=== PATIENT | male | born 1940 | race Caucasian/White ===

== ENCOUNTER 2018-04-10 13:55 | Outpatient (CLI) | payer OTHER ==
[~2018-04-10 13:55] MED LIST: AMIO200T42 PO; DIGO125T PO; DILT30TA33 PO; DOXA1TAB2 PO; FURO40TA6 PO; POTA20TA6 PO; RIVA10TA2 PO; TRAM50TA2 PO
[2018-05-09] MEDS ORDERED: METO50TA4 PO (14:47)
[2018-05-09] MEDS ORDERED: FURO40TA6 PO (14:47)
[2018-05-09] MEDS ORDERED: DIGO125T PO (14:47)
[2018-05-09] MEDS ORDERED: AMLO-150 PO (14:47)
[2018-05-09] MEDS ORDERED: potassium chloride PO (14:47)
[2018-05-09] MEDS ORDERED: AMIO100T4 PO (14:47)
== END 2018-04-10 23:59 | disposition home or self-care (01) ==
LOC: CFH 13:55
PROVIDERS: ATTEND Internal Medicine Cardiovascular Disease
DX: Z02.9 Encounter for administrative examinations, unspecified (principal)

== ENCOUNTER → 2018-05-07 | Outpatient (CLI) | payer OTHER ==
[~2018-05-07] MED LIST changes: +AMIO100T4 PO; +AMLO-150 PO; +METO50TA4 PO; +potassium chloride PO
== END | disposition home or self-care (01) ==
LOC: CVU 11:38
PROVIDERS: ATTEND Internal Medicine Cardiovascular Disease
DX: I08.1 Rheumatic disorders of both mitral and tricuspid valves (principal); I48.91 Unspecified atrial fibrillation
CPT/HCPCS: 0399T; 93306

== ENCOUNTER 2018-05-10 08:00 | Day surgery (SDC) | payer OTHER ==
[2018-05-09 15:11] LABS: BASOPHILS # (AUTO) 0.02 x10^3/uL (0-0.1); BASOPHILS % (AUTO) 0 % (0-1); EOSINOPHILS # (AUTO) 0.09 x10^3/uL (0-0.4); EOSINOPHILS % (AUTO) 2 % (1-7); LYMPHOCYTES # (AUTO) 0.84 x10^3/uL (1-3.4); LYMPHOCYTES % (AUTO) 18 % (22-44); MD NO; MEAN CORPUSCULAR HEMOGLOBIN 32.4 pg (27.5-34.5); MEAN CORPUSCULAR VOLUME 95.3 fL (81-97); MONOCYTES # (AUTO) 0.32 x10^3/uL (0.2-0.8); MONOCYTES % (AUTO) 7 % (2-9); NEUTROPHILS # (AUTO) 3.46 x10^3/uL (1.8-6.8); NEUTROPHILS % (AUTO) 73 % (42-75); PLATELET COUNT 105 x10^3/uL (130-400); RED BLOOD COUNT 3.65 x10^6/uL (4.38-5.82); RED CELL DISTRIBUTION WIDTH 15.3 % (9.4-14.8)
[2018-05-09 15:16] LABS: ALANINE AMINOTRANSFERASE 22 U/L (12-78); ALBUMIN 3.7 g/dL (3.4-5.0); ANION GAP 6 mmol/L (5-15); CALCIUM 8.1 mg/dL (8.5-10.1); CHLORIDE 110 mmol/L (98-107); CREATININE 1.48 mg/dL (0.7-1.3)
[2018-05-09 15:18] LABS: ALKALINE PHOSPHATASE 44 U/L (45-117); BILIRUBIN,TOTAL 0.9 mg/dL (0.2-1.0); TOTAL PROTEIN 6.2 g/dL (6.4-8.2)
[~2018-05-10] VITALS: Ht 188 cm; Wt 77.2 kg
[2018-05-10] MEDS ORDERED: MIDAZOLAM 1 MG/ML, 2ML ONE (08:41)
[2018-05-10] MEDS ORDERED: HEPARIN 1,000 UNITS/ML, 10ML ONE (08:42)
[2018-05-10] MEDS ORDERED: VERAPAMIL 2.5 MG/ML, 2ML ONE (08:42)
[2018-05-10] MEDS ORDERED: LIDOCAINE-MPF 1%, 5ML ONE (08:42)
[2018-05-10] MEDS ORDERED: FENTANYL PF 100 MCG/2ML ONE (08:42)
[2018-05-10] MEDS ORDERED: NITROGLYCERIN 5 MG/ML, 10ML ONE (08:42)
[2018-05-10] MEDS ORDERED: SODIUM CHLORIDE 0.9% 1,000 ML IV SCH ×2 (09:49→10:00)
== END 2018-05-10 12:10 | disposition home or self-care (01) ==
LOC: CACL 08:00
PROVIDERS: ATTEND Internal Medicine Cardiovascular Disease
DX: I25.10 Atherosclerotic heart disease of native coronary artery without angina pectoris (principal); I48.91 Unspecified atrial fibrillation; I10 Essential (primary) hypertension; I34.0 Nonrheumatic mitral (valve) insufficiency
CPT/HCPCS: 36415; 80053; 85025; 93460; 99156; C1769; C1894; J1644; J2250; J3010; Q9967

== ENCOUNTER 2018-07-03 11:30 | Inpatient (IN) | payer OTHER ==
[~2018-07-03] VITALS: Ht 188 cm; Wt 89.1 kg
[2018-07-03 14:22] LABS: MICROSCOPIC NOT IND
[2018-07-03 14:42] LABS: BASOPHILS # (AUTO) 0.04 x10^3/uL (0-0.1); BASOPHILS % (AUTO) 1 % (0-1); EOSINOPHILS # (AUTO) 0.07 x10^3/uL (0-0.4); EOSINOPHILS % (AUTO) 2 % (1-7); LYMPHOCYTES # (AUTO) 0.79 x10^3/uL (1-3.4); LYMPHOCYTES % (AUTO) 19 % (22-44); MD NO; MEAN CORPUSCULAR HEMOGLOBIN 31.1 pg (27.5-34.5); MEAN CORPUSCULAR HGB CONC 33.3 g/dL (33.2-36.2); MEAN CORPUSCULAR VOLUME 93.4 fL (81-97); MEAN PLATELET VOLUME 9.4 fL (7.4-10.4); MONOCYTES # (AUTO) 0.29 x10^3/uL (0.2-0.8); MONOCYTES % (AUTO) 7 % (2-9); NEUTROPHILS # (AUTO) 3.03 x10^3/uL (1.8-6.8); NEUTROPHILS % (AUTO) 72 % (42-75); PLATELET COUNT 135 x10^3/uL (130-400); RED CELL DISTRIBUTION WIDTH 16.5 % (9.4-14.8)
[2018-07-03 14:47] LABS: INTERNATIONAL NORMALIZED RATIO 1.02 (0.93-1.1); PROTHROMBIN TIME 10.7 Seconds (9.6-11.5)
[2018-07-03 14:51] LABS: ALANINE AMINOTRANSFERASE 20 U/L (12-78); ALBUMIN 3.9 g/dL (3.4-5.0); ANION GAP 4 mmol/L (5-15); CALCIUM 8.5 mg/dL (8.5-10.1); CHLORIDE 112 mmol/L (98-107); CREATININE 1.47 mg/dL (0.7-1.3)
[2018-07-03 14:54] LABS: ALKALINE PHOSPHATASE 41 U/L (45-117); BILIRUBIN,TOTAL 0.4 mg/dL (0.2-1.0); TOTAL PROTEIN 6.4 g/dL (6.4-8.2)
[2018-07-03 15:24] LABS: HEMOGLOBIN A1C 5.2 % (4.2-6.3)
[2018-07-04] VITALS (18 sets, daily range): BP systolic 84–152; BP diastolic 41–77
[2018-07-04] MEDS ORDERED: PLEASE ENTER WEIGHT MC SCH (05:00)
[2018-07-04] MEDS ORDERED: INSULIN LISPRO 100 UNITS/ML, PEN SQ-INSULIN SCH (06:00)
[2018-07-04] MEDS ORDERED: DO NOT GIVE MC SCH (06:00)
[2018-07-04] MEDS ORDERED: CHLORHEXIDINE 15 ML UDC MM SCH (06:00)
[2018-07-04] MEDS: SODIUM CHLORIDE FLUSH 10ML SYR IVF SCH ×3 (06:32→19:53)
[2018-07-04] MEDS ORDERED: FENTANYL PF 250 MCG/5ML ONE ×4 (06:42→06:43)
[2018-07-04] MEDS ORDERED: MIDAZOLAM 10MG/2 ML ONE (06:42)
[2018-07-04] MEDS ORDERED: VASOPRESSIN 20 UNIT/ML, 1ML ONE (07:08)
[2018-07-04] MEDS ORDERED: REGULAR INSULIN 62.5 UNITS in SODIUM CHLORIDE 0.9% 249.375 ML IV PRN ×2 (07:30→10:36)
[2018-07-04] MEDS ORDERED: CEFUROXIME 1.5 GM in SODIUM CHLORIDE 0.9% 50 ML IVPB PRN (07:30)
[2018-07-04] MEDS ORDERED: MANNITOL PMX 20% 500 ML IVPB PRN (07:30)
[2018-07-04] MEDS ORDERED: VANCOMYCIN 1,100 MG in SODIUM CHLORIDE 0.9% 250 ML IV PRN (07:30)
[2018-07-04] MEDS ORDERED: POTASSIUM CHLORIDE 80 MEQ, SODIUM BICARBONATE 8.4% 10 MEQ, MAGNESIUM SULFATE 0.5 GM, LI... IV PRN (07:30)
[2018-07-04] MEDS ORDERED: EPINEPHRINE 2 MG in SODIUM CHLORIDE 0.9% 248 ML IV SCH (07:30)
[2018-07-04] MEDS ORDERED: PHENYLEPHRINE 10 MG in SODIUM CHLORIDE 0.9% 249 ML IV PRN (07:30)
[2018-07-04] MEDS ORDERED: VANCOMYCIN 1,200 MG in SODIUM CHLORIDE 0.9% 250 ML IV PRN (07:30)
[2018-07-04] MEDS ORDERED: ALBUMIN HUMAN 5% 500 ML IV PRN (07:30)
[2018-07-04] MEDS ORDERED: DEXMEDETOMIDINE 200 MCG in SODIUM CHLORIDE 0.9% 48 ML IV SCH (07:30)
[2018-07-04] MEDS ORDERED: CALCIUM CHLORIDE 10%, 10ML SYR ONE (08:37)
[2018-07-04] MEDS ORDERED: PHENYLEPHRINE 10 MG/ML ONE (08:39)
[2018-07-04] MEDS ORDERED: PROPOFOL 10 MG/ML, 20ML ONE (08:39)
[2018-07-04] MEDS ORDERED: AMINOCAPROIC ACID 250 MG/ML, 20ML ONE ×2 (08:39)
[2018-07-04] MEDS ORDERED: ROCURONIUM 10MG/ML,5ML ONE ×2 (08:39)
[2018-07-04] MEDS ORDERED: PROTAMINE SULFATE 10 MG/ML, 25ML ONE ×2 (08:39)
[2018-07-04] MEDS ORDERED: EPINEPHRINE 1 MG/ML, 1ML ONE (08:39)
[2018-07-04] MEDS ORDERED: MUPIROCIN OINT 2%, 22GM TP SCH (09:00)
[2018-07-04] MEDS: DOCUSATE 100 MG CAPSULE PO SCH ×2 (09:00→19:53)
[2018-07-04] MEDS ORDERED: SODIUM CHLORIDE 0.9% 1,000 ML IV PRN (10:36)
[2018-07-04] MEDS ORDERED: DEXMEDETOMIDINE 200 MCG in SODIUM CHLORIDE 0.9% 48 ML IV PRN (10:36)
[2018-07-04] MEDS ORDERED: DOBUTAMINE 250 MG in SODIUM CHLORIDE 0.9% 230 ML IV PRN (10:36)
[2018-07-04] MEDS ORDERED: NITROGLYCERIN/D5W PMX 250 ML IV PRN (10:36)
[2018-07-04] MEDS ORDERED: VASOPRESSIN 50 UNIT in SODIUM CHLORIDE 0.9% 247.5 ML IV PRN (10:36)
[2018-07-04] MEDS ORDERED: HEPARIN 1,000 UNITS/ML, 30ML ONE (10:58)
[2018-07-04] MEDS ORDERED: LIDOCAINE 2% 100MG/5ML SYRINGE ONE (10:58)
[2018-07-04] MEDS ORDERED: methylPREDNISolone SOD SUCC 125 MG/2 ML ONE (10:58)
[2018-07-04] MEDS ORDERED: SODIUM BICARBONATE 1 MEQ/ML, 50ML VIAL ONE (10:58)
[2018-07-04] MEDS ORDERED: ALBUMIN HUMAN 25% 50 ML ONE (10:59)
[2018-07-04] MEDS ORDERED: MIDAZOLAM 1 MG/ML, 5ML IVPush PRN (11:00)
[2018-07-04] MEDS ORDERED: BISACODYL 5 MG EC TABLET PO PRN (11:00)
[2018-07-04] MEDS ORDERED: BISACODYL 10 MG SUPP PR PRN (11:00)
[2018-07-04] MEDS ORDERED: DEXTROSE 4 GM TAB.CHEW PO PRN (11:00)
[2018-07-04] MEDS ORDERED: PROCHLORPERAZINE 5 MG/ML, 2ML IVPush PRN (11:00)
[2018-07-04] MEDS ORDERED: ACETAMINOPHEN 325 MG TABLET PO PRN (11:00)
[2018-07-04] MEDS ORDERED: morphine SULFATE 10 MG/ML, 1ML IVPush PRN (11:00)
[2018-07-04] MEDS ORDERED: HYDROmorphone 1 MG/ML, 1ML INJ IVPush PRN (11:00)
[2018-07-04] MEDS ORDERED: FENTANYL PF 100 MCG/2ML IVPush PRN (11:00)
[2018-07-04] MEDS ORDERED: INSULIN REGULAR 100 UNITS/ML, 3ML VIAL IVPush PRN (11:00)
[2018-07-04] MEDS ORDERED: EPINEPHRINE 2 MG in SODIUM CHLORIDE 0.9% 248 ML IV PRN (11:00)
[2018-07-04] MEDS ORDERED: ACETAMINOPHEN 650 MG SUPP PR PRN (11:00)
[2018-07-04] MEDS ORDERED: SODIUM BICARB 8.4%, 50ML SYRINGE IV PRN (11:00)
[2018-07-04] MEDS ORDERED: DEXTROSE 50%, 50ML SYRINGE IVPush PRN (11:00)
[2018-07-04] MEDS ORDERED: GLUCAGON 1 MG IM PRN (11:00)
[2018-07-04 11:24] LABS: GLUCOSE BY BLOOD GAS ANALYZER 161 mg/dL (70-110); POTASSIUM BY BLOOD GAS ANALYZR 3.8 mmol/L (3.6-5.5)
[2018-07-04] MEDS: INSULIN LISPRO 100 UNITS/ML, PEN SQ-INSULIN SCH ×4 (11:26→22:04)
[2018-07-04] MEDS: MAGNESIUM SULFATE 1 GM in SODIUM CHLORIDE 0.9% 50 ML IVPB SCH (11:27)
[2018-07-04] MEDS: LACTATED RINGERS 1,000 ML IV PRN ×2 (11:33→12:00)
[2018-07-04 11:37] LABS: INTERNATIONAL NORMALIZED RATIO 1.24 (0.93-1.1); PROTHROMBIN TIME 12.9 Seconds (9.6-11.5)
[2018-07-04] MEDS ORDERED: POTASSIUM CHLORIDE PMX 100 ML IV ONE ×2 (12:00→12:30)
[2018-07-04] MEDS ORDERED: CALCIUM CHLORIDE 13.6 MEQ in SODIUM CHLORIDE 0.9% 100 ML IV ONE ×2 (12:00→17:30)
[2018-07-04] MEDS: KSCALE TO 4.5 IV SCH ×3 (12:06→23:04)
[2018-07-04] MEDS: PHENYLEPHRINE 10 MG in SODIUM CHLORIDE 0.9% 249 ML IV PRN ×2 (13:54→16:00)
[2018-07-04 17:07] LABS: INTERNATIONAL NORMALIZED RATIO 1.11 (0.93-1.1); PROTHROMBIN TIME 11.6 Seconds (9.6-11.5)
[2018-07-04] MEDS ORDERED: NOVOSEVEN RT (FACTOR VIIA) RECOMB 1,000 MCG IVPush ONE (17:30)
[2018-07-04] MEDS: OXYcodone IR 5MG TABLET PO PRN (18:10)
[2018-07-04] MEDS: SODIUM CHLORIDE 0.9% IV PRN ×2 (18:26→22:04)
[2018-07-04] MEDS: PHENYLEPHRINE IV PRN ×2 (18:26→22:04)
[2018-07-04] MEDS: CEFUROXIME 1.5 GM in SODIUM CHLORIDE 0.9% 50 ML IVPB SCH (19:11)
[2018-07-04] MEDS: VANCOMYCIN 1,200 MG in SODIUM CHLORIDE 0.9% 250 ML IVPB SCH (19:52)
[2018-07-04] MEDS: HYDROcodone/APAP 10/325 MG TABLET PO PRN (19:54)
[2018-07-04] MEDS: MUPIROCIN OINT 2%, 22GM NAS SCH (22:05)
[2018-07-04] MEDS ORDERED: FUROSEMIDE 20 MG/2 ML IV ONE (23:00)
[2018-07-05] MEDS: HYDROcodone/APAP 10/325 MG TABLET PO PRN ×4 (00:10→20:51)
[2018-07-05] MEDS: ONDANSETRON 2MG/ML, 2ML IVPush PRN ×2 (04:28→17:51)
[2018-07-05] MEDS: HYDROcodone/APAP 5/325 TABLET PO PRN (04:28)
[2018-07-05 05:19] LABS: INTERNATIONAL NORMALIZED RATIO 1.01 (0.93-1.1); PROTHROMBIN TIME 10.6 Seconds (9.6-11.5)
[2018-07-05 05:22] LABS: ALBUMIN 3.3 g/dL (3.4-5.0); ANION GAP 8 mmol/L (5-15); CALCIUM 8.1 mg/dL (8.5-10.1); CHLORIDE 118 mmol/L (98-107)
[2018-07-05 05:24] LABS: CREATININE 1.53 mg/dL (0.7-1.3)
[2018-07-05 05:30] LABS: BASOPHILS % (AUTO) 0 % (0-1); EOSINOPHILS % (AUTO) 0 % (1-7); LYMPHOCYTES # (AUTO) 0.24 x10^3/uL (1-3.4); LYMPHOCYTES % (AUTO) 2 % (22-44); MD NO; MEAN CORPUSCULAR HEMOGLOBIN 31.4 pg (27.5-34.5); MEAN CORPUSCULAR HGB CONC 33.3 g/dL (33.2-36.2); MEAN CORPUSCULAR VOLUME 94.4 fL (81-97); MEAN PLATELET VOLUME 9.7 fL (7.4-10.4); MONOCYTES % (AUTO) 5 % (2-9); NEUTROPHILS # (AUTO) 10.56 x10^3/uL (1.8-6.8); NEUTROPHILS % (AUTO) 93 % (42-75); PLATELET COUNT 156 x10^3/uL (130-400); RED BLOOD COUNT 2.94 x10^6/uL (4.38-5.82); RED CELL DISTRIBUTION WIDTH 16.8 % (9.4-14.8)
[2018-07-05] MEDS: KSCALE TO 4.5 IV SCH (06:06)
[2018-07-05] MEDS: CEFUROXIME 1.5 GM in SODIUM CHLORIDE 0.9% 50 ML IVPB SCH (06:44)
[2018-07-05] MEDS ORDERED: FUROSEMIDE 40 MG/4 ML IV ONE (07:30)
[2018-07-05] MEDS ORDERED: FUROSEMIDE 40 MG/4 ML ONE (07:36)
[2018-07-05] MEDS: VANCOMYCIN 1,200 MG in SODIUM CHLORIDE 0.9% 250 ML IVPB SCH (07:43)
[2018-07-05] MEDS: OXYcodone IR 5MG TABLET PO PRN ×3 (07:43→16:52)
[2018-07-05] MEDS: DOCUSATE 100 MG CAPSULE PO SCH ×2 (08:24→20:51)
[2018-07-05] MEDS: AMIODARONE 200 MG TABLET PO SCH ×2 (08:24→20:51)
[2018-07-05] MEDS: DIGOXIN 0.125 MG TABLET PO SCH (08:24)
[2018-07-05] MEDS: ASPIRIN 81 MG TABLET EC PO SCH (08:24)
[2018-07-05] MEDS: MUPIROCIN OINT 2%, 22GM NAS SCH ×2 (08:24→20:50)
[2018-07-05] MEDS: SODIUM CHLORIDE FLUSH 10ML SYR IVF SCH ×3 (08:25→20:49)
[2018-07-05] MEDS: WARFARIN BIOPROSTHETIC VALVE PROTOCOL 2-3 XX SCH (08:25)
[2018-07-05] MEDS: MAGNESIUM SULFATE 1 GM in SODIUM CHLORIDE 0.9% 50 ML IVPB SCH (11:10)
[2018-07-05] MEDS: INSULIN LISPRO 100 UNITS/ML, PEN SQ-INSULIN SCH ×3 (11:14→20:59)
[2018-07-05] MEDS: SODIUM CHLORIDE 0.9% 1,000 ML IV SCH (16:53)
[2018-07-05] MEDS ORDERED: WARFARIN 5 MG TABLET PO-COUM ONE (18:00)
[2018-07-05] MEDS: CHLORHEXIDINE 15 ML UDC MM SCH (20:50)
[2018-07-05] MEDS: DOXAZOSIN 1MG TABLET PO SCH (20:51)
[2018-07-06] MEDS: HYDROcodone/APAP 5/325 TABLET PO PRN (05:25)
[2018-07-06] MEDS: AMIODARONE 200 MG TABLET PO SCH ×2 (05:58→19:53)
[2018-07-06 06:05] LABS: BASOPHILS % (AUTO) 0 % (0-1); EOSINOPHILS % (AUTO) 0 % (1-7); LYMPHOCYTES # (AUTO) 0.45 x10^3/uL (1-3.4); LYMPHOCYTES % (AUTO) 4 % (22-44); MD NO; MEAN CORPUSCULAR HEMOGLOBIN 31.3 pg (27.5-34.5); MEAN CORPUSCULAR HGB CONC 33.1 g/dL (33.2-36.2); MEAN CORPUSCULAR VOLUME 94.6 fL (81-97); MONOCYTES # (AUTO) 0.72 x10^3/uL (0.2-0.8); MONOCYTES % (AUTO) 6 % (2-9); NEUTROPHILS # (AUTO) 11.39 x10^3/uL (1.8-6.8); NEUTROPHILS % (AUTO) 91 % (42-75); PLATELET COUNT 131 x10^3/uL (130-400); RED CELL DISTRIBUTION WIDTH 17.1 % (9.4-14.8)
[2018-07-06 06:10] LABS: CHLORIDE 109 mmol/L (98-107); INTERNATIONAL NORMALIZED RATIO 0.98 (0.93-1.1); PROTHROMBIN TIME 10.3 Seconds (9.6-11.5)
[2018-07-06 06:34] LABS: ANION GAP 9 mmol/L (5-15); CALCIUM 7.7 mg/dL (8.5-10.1); CREATININE 2.25 mg/dL (0.7-1.3)
[2018-07-06] MEDS: INSULIN LISPRO 100 UNITS/ML, PEN SQ-INSULIN SCH ×4 (07:00→20:00)
[2018-07-06] MEDS: ASPIRIN 81 MG TABLET EC PO SCH (08:45)
[2018-07-06] MEDS: DOCUSATE 100 MG CAPSULE PO SCH ×2 (08:45→19:52)
[2018-07-06] MEDS: CHLORHEXIDINE 15 ML UDC MM SCH ×2 (08:46→19:49)
[2018-07-06] MEDS: MUPIROCIN OINT 2%, 22GM NAS SCH ×2 (08:47→19:49)
[2018-07-06] MEDS: HYDROcodone/APAP 10/325 MG TABLET PO PRN ×2 (09:00→16:35)
[2018-07-06] MEDS: DIGOXIN 0.125 MG TABLET PO SCH (09:00)
[2018-07-06] MEDS: WARFARIN BIOPROSTHETIC VALVE PROTOCOL 2-3 XX SCH (09:00)
[2018-07-06] MEDS: SODIUM CHLORIDE FLUSH 10ML SYR IVF SCH ×2 (09:02→19:49)
[2018-07-06] MEDS: SODIUM CHLORIDE 0.9% 1,000 ML IV SCH (12:00)
[2018-07-06] MEDS: OXYcodone IR 5MG TABLET PO PRN (12:10)
[2018-07-06] MEDS: SODIUM BICARB 8.4%,50ML SYR. 75 MEQ in SODIUM CHLORIDE 0.45% 1,000 ML IV SCH (14:13)
[2018-07-06 14:34] LABS: BASOPHILS # (AUTO) 0.01 x10^3/uL (0-0.1); BASOPHILS % (AUTO) 0 % (0-1); EOSINOPHILS % (AUTO) 0 % (1-7); LYMPHOCYTES # (AUTO) 0.35 x10^3/uL (1-3.4); LYMPHOCYTES % (AUTO) 3 % (22-44); MD NO; MEAN CORPUSCULAR VOLUME 93.9 fL (81-97); MEAN PLATELET VOLUME 9.4 fL (7.4-10.4); MONOCYTES # (AUTO) 0.72 x10^3/uL (0.2-0.8); MONOCYTES % (AUTO) 6 % (2-9); NEUTROPHILS # (AUTO) 10.88 x10^3/uL (1.8-6.8); NEUTROPHILS % (AUTO) 91 % (42-75); PLATELET COUNT 116 x10^3/uL (130-400); RED CELL DISTRIBUTION WIDTH 17.1 % (9.4-14.8)
[2018-07-06 14:43] LABS: ALBUMIN 3.2 g/dL (3.4-5.0); ANION GAP 7 mmol/L (5-15); CALCIUM 7.4 mg/dL (8.5-10.1); CHLORIDE 107 mmol/L (98-107); CREATININE 2.24 mg/dL (0.7-1.3)
[2018-07-06 14:44] LABS: CALCIUM 7.5 mg/dL (8.5-10.1)
[2018-07-06 14:47] LABS: ABSOLUTE RETICS # 0.068 x10^6/uL (0.5-1.5); RED BLOOD COUNT 2.59 x10^6/uL (4.38-5.82); RETICULOCYTE COUNT % 2.63 % (0.5-1.5)
[2018-07-06] MEDS ORDERED: WARFARIN 5 MG TABLET PO-COUM ONE (18:00)
[2018-07-06 18:06] LABS: BASOPHILS # (AUTO) 0.02 x10^3/uL (0-0.1); BASOPHILS % (AUTO) 0 % (0-1); EOSINOPHILS % (AUTO) 0 % (1-7); LYMPHOCYTES # (AUTO) 0.44 x10^3/uL (1-3.4); LYMPHOCYTES % (AUTO) 4 % (22-44); MD NO; MEAN CORPUSCULAR HEMOGLOBIN 31.7 pg (27.5-34.5); MEAN CORPUSCULAR HGB CONC 33.8 g/dL (33.2-36.2); MEAN CORPUSCULAR VOLUME 93.8 fL (81-97); MEAN PLATELET VOLUME 9.3 fL (7.4-10.4); MONOCYTES # (AUTO) 0.65 x10^3/uL (0.2-0.8); MONOCYTES % (AUTO) 6 % (2-9); NEUTROPHILS # (AUTO) 10.09 x10^3/uL (1.8-6.8); NEUTROPHILS % (AUTO) 90 % (42-75); PLATELET COUNT 109 x10^3/uL (130-400); RED CELL DISTRIBUTION WIDTH 16.6 % (9.4-14.8)
[2018-07-06 18:15] LABS: ANION GAP 7 mmol/L (5-15); CALCIUM 7.4 mg/dL (8.5-10.1); CHLORIDE 107 mmol/L (98-107); CREATININE 2.05 mg/dL (0.7-1.3)
[2018-07-06] MEDS: DOXAZOSIN 1MG TABLET PO SCH (19:52)
[2018-07-06 21:09] LABS: MEAN CORPUSCULAR HEMOGLOBIN 31.5 pg (27.5-34.5); MEAN CORPUSCULAR HGB CONC 33.1 g/dL (33.2-36.2); MEAN PLATELET VOLUME 9.4 fL (7.4-10.4); PLATELET COUNT 110 x10^3/uL (130-400); RED BLOOD COUNT 2.59 x10^6/uL (4.38-5.82); RED CELL DISTRIBUTION WIDTH 16.6 % (9.4-14.8)
[2018-07-06 21:17] LABS: ALBUMIN 3.1 g/dL (3.4-5.0); ANION GAP 6 mmol/L (5-15); CALCIUM 7.4 mg/dL (8.5-10.1); CHLORIDE 106 mmol/L (98-107); CREATININE 2.07 mg/dL (0.7-1.3)
[2018-07-06 21:26] LABS: BASOPHILS # (AUTO) 0.12 x10^3/uL (0-0.1); BASOPHILS % (AUTO) 1 % (0-1); EOSINOPHILS % (AUTO) 0 % (1-7); LYMPHOCYTES % (AUTO) 3 % (22-44); MD SCAN; MONOCYTES # (AUTO) 0.86 x10^3/uL (0.2-0.8); MONOCYTES % (AUTO) 7 % (2-9); NEUTROPHILS # (AUTO) 10.33 x10^3/uL (1.8-6.8); NEUTROPHILS % (AUTO) 88 % (42-75)
[2018-07-06] MEDS: ONDANSETRON 2MG/ML, 2ML IVPush PRN (21:47)
[2018-07-07] VITALS (8 sets, daily range): BP systolic 111–132; BP diastolic 57–82
[2018-07-07] MEDS: SODIUM BICARB 8.4%,50ML SYR. 75 MEQ in SODIUM CHLORIDE 0.45% 1,000 ML IV SCH (04:21)
[2018-07-07 05:12] LABS: MEAN CORPUSCULAR HEMOGLOBIN 31.6 pg (27.5-34.5); MEAN CORPUSCULAR HGB CONC 33.5 g/dL (33.2-36.2); MEAN CORPUSCULAR VOLUME 94.1 fL (81-97); MEAN PLATELET VOLUME 9.5 fL (7.4-10.4); PLATELET COUNT 94 x10^3/uL (130-400); RED CELL DISTRIBUTION WIDTH 16.8 % (9.4-14.8)
[2018-07-07 05:17] LABS: INTERNATIONAL NORMALIZED RATIO 0.98 (0.93-1.1); PROTHROMBIN TIME 10.3 Seconds (9.6-11.5)
[2018-07-07 05:22] LABS: ALBUMIN 2.9 g/dL (3.4-5.0); ANION GAP 4 mmol/L (5-15); CALCIUM 7.4 mg/dL (8.5-10.1); CHLORIDE 106 mmol/L (98-107)
[2018-07-07 05:28] LABS: ALANINE AMINOTRANSFERASE 29 U/L (12-78); ALKALINE PHOSPHATASE 29 U/L (45-117); BILIRUBIN,TOTAL 0.4 mg/dL (0.2-1.0); CREATINE KINASE, TOTAL 289 U/L (39-308); CREATININE 1.75 mg/dL (0.7-1.3)
[2018-07-07 05:32] LABS: MICROSCOPIC AUTO
[2018-07-07 06:02] LABS: BASOPHILS # (AUTO) 0.01 x10^3/uL (0-0.1); BASOPHILS % (AUTO) 0 % (0-1); EOSINOPHILS % (AUTO) 0 % (1-7); LYMPHOCYTES # (AUTO) 0.39 x10^3/uL (1-3.4); LYMPHOCYTES % (AUTO) 5 % (22-44); MD SCAN; MONOCYTES # (AUTO) 0.55 x10^3/uL (0.2-0.8); MONOCYTES % (AUTO) 6 % (2-9); NEUTROPHILS # (AUTO) 7.64 x10^3/uL (1.8-6.8); NEUTROPHILS % (AUTO) 89 % (42-75)
[2018-07-07] MEDS: HYDROcodone/APAP 5/325 TABLET PO PRN ×2 (06:25→17:00)
[2018-07-07] MEDS: INSULIN LISPRO 100 UNITS/ML, PEN SQ-INSULIN SCH (07:00)
[2018-07-07] MEDS: DOCUSATE 100 MG CAPSULE PO SCH ×2 (08:31→21:44)
[2018-07-07] MEDS: DIGOXIN 0.125 MG TABLET PO SCH (08:31)
[2018-07-07] MEDS: CHLORHEXIDINE 15 ML UDC MM SCH (08:31)
[2018-07-07] MEDS: ASPIRIN 81 MG TABLET EC PO SCH (08:31)
[2018-07-07] MEDS: AMIODARONE 200 MG TABLET PO SCH ×2 (08:31→21:44)
[2018-07-07] MEDS: MUPIROCIN OINT 2%, 22GM NAS SCH ×2 (08:32→21:45)
[2018-07-07] MEDS: SODIUM CHLORIDE FLUSH 10ML SYR IVF SCH ×2 (08:32→21:46)
[2018-07-07] MEDS: SODIUM CHLORIDE 0.9% 1,000 ML IV SCH ×2 (09:42→23:18)
[2018-07-07] MEDS: WARFARIN BIOPROSTHETIC VALVE PROTOCOL 2-3 XX SCH (11:38)
[2018-07-07] MEDS ORDERED: AMIODARONE 150 MG in DEXTROSE 5% 100 ML IV ONE (14:00)
[2018-07-07] MEDS ORDERED: AMIODARONE 900 MG in DEXTROSE 5% 482 ML IV PRN (14:00)
[2018-07-07] MEDS ORDERED: FILTER 0.22 MICRON FOR AMIODARONE IV PRN (14:30)
[2018-07-07] MEDS ORDERED: WARFARIN 5 MG TABLET PO-COUM ONE (18:00)
[2018-07-07] MEDS: DOXAZOSIN 1MG TABLET PO SCH (21:45)
[2018-07-08 02:00] VITALS: BP 129/83
[2018-07-08 05:27] LABS: INTERNATIONAL NORMALIZED RATIO 1.01 (0.93-1.1); PROTHROMBIN TIME 10.6 Seconds (9.6-11.5)
[2018-07-08 05:33] LABS: CHLORIDE 106 mmol/L (98-107)
[2018-07-08 05:47] LABS: ALANINE AMINOTRANSFERASE 24 U/L (12-78); ALBUMIN 2.8 g/dL (3.4-5.0); ALKALINE PHOSPHATASE 26 U/L (45-117); ANION GAP 5 mmol/L (5-15); BILIRUBIN,TOTAL 0.8 mg/dL (0.2-1.0); CALCIUM 7.4 mg/dL (8.5-10.1); CREATININE 1.31 mg/dL (0.7-1.3); TOTAL PROTEIN 5.2 g/dL (6.4-8.2)
[2018-07-08 06:20] LABS: BASOPHILS # (AUTO) 0.01 x10^3/uL (0-0.1); BASOPHILS % (AUTO) 0 % (0-1); EOSINOPHILS % (AUTO) 0 % (1-7); LYMPHOCYTES % (AUTO) 8 % (22-44); MD SCAN; MEAN CORPUSCULAR HGB CONC 34.6 g/dL (33.2-36.2); MEAN CORPUSCULAR VOLUME 92.5 fL (81-97); MEAN PLATELET VOLUME 9.8 fL (7.4-10.4); MONOCYTES % (AUTO) 8 % (2-9); NEUTROPHILS # (AUTO) 5.56 x10^3/uL (1.8-6.8); NEUTROPHILS % (AUTO) 85 % (42-75); PLATELET COUNT 89 x10^3/uL (130-400); RED BLOOD COUNT 3.23 x10^6/uL (4.38-5.82); RED CELL DISTRIBUTION WIDTH 16.6 % (9.4-14.8)
[2018-07-08 07:00] VITALS: BP 113/73
[2018-07-08] MEDS: WARFARIN BIOPROSTHETIC VALVE PROTOCOL 2-3 XX SCH (07:21)
[2018-07-08] MEDS: MUPIROCIN OINT 2%, 22GM NAS SCH ×2 (07:26→21:18)
[2018-07-08] MEDS: SODIUM CHLORIDE FLUSH 10ML SYR IVF SCH ×2 (07:26→21:19)
[2018-07-08] MEDS: DIGOXIN 0.125 MG TABLET PO SCH (07:27)
[2018-07-08] MEDS: DOCUSATE 100 MG CAPSULE PO SCH ×2 (07:27→21:18)
[2018-07-08] MEDS: ASPIRIN 81 MG TABLET EC PO SCH (07:27)
[2018-07-08] MEDS: AMIODARONE 200 MG TABLET PO SCH ×2 (07:27→21:18)
[2018-07-08] MEDS: HYDROcodone/APAP 5/325 TABLET PO PRN ×3 (07:28→17:50)
[2018-07-08 12:10] VITALS: BP 139/78
[2018-07-08] MEDS ORDERED: WARFARIN 5 MG TABLET PO-COUM ONE (18:00)
[2018-07-08 19:30] VITALS: BP 127/66
[2018-07-08] MEDS: DOXAZOSIN 1MG TABLET PO SCH (21:18)
[2018-07-09 01:36] VITALS: BP 120/81
[2018-07-09 05:12] LABS: BASOPHILS # (AUTO) 0.02 x10^3/uL (0-0.1); BASOPHILS % (AUTO) 0 % (0-1); EOSINOPHILS # (AUTO) 0.03 x10^3/uL (0-0.4); EOSINOPHILS % (AUTO) 1 % (1-7); LYMPHOCYTES # (AUTO) 0.46 x10^3/uL (1-3.4); LYMPHOCYTES % (AUTO) 7 % (22-44); MD NO; MEAN CORPUSCULAR HGB CONC 34.3 g/dL (33.2-36.2); MEAN CORPUSCULAR VOLUME 93.3 fL (81-97); MEAN PLATELET VOLUME 9.6 fL (7.4-10.4); MONOCYTES # (AUTO) 0.51 x10^3/uL (0.2-0.8); MONOCYTES % (AUTO) 8 % (2-9); NEUTROPHILS # (AUTO) 5.17 x10^3/uL (1.8-6.8); NEUTROPHILS % (AUTO) 84 % (42-75); PLATELET COUNT 111 x10^3/uL (130-400); RED BLOOD COUNT 3.26 x10^6/uL (4.38-5.82); RED CELL DISTRIBUTION WIDTH 16.5 % (9.4-14.8)
[2018-07-09 05:19] LABS: INTERNATIONAL NORMALIZED RATIO 1.39 (0.93-1.1); PROTHROMBIN TIME 14.4 Seconds (9.6-11.5)
[2018-07-09 05:24] LABS: ANION GAP 5 mmol/L (5-15); CALCIUM 7.3 mg/dL (8.5-10.1); CHLORIDE 104 mmol/L (98-107); CREATININE 1.06 mg/dL (0.7-1.3)
[2018-07-09 07:25] VITALS: BP 112/71
[2018-07-09] MEDS: WARFARIN BIOPROSTHETIC VALVE PROTOCOL 2-3 XX SCH (09:00)
[2018-07-09] MEDS: SODIUM CHLORIDE FLUSH 10ML SYR IVF SCH ×2 (09:43→20:49)
[2018-07-09] MEDS: DOCUSATE 100 MG CAPSULE PO SCH ×2 (09:44→20:49)
[2018-07-09] MEDS: HYDROcodone/APAP 5/325 TABLET PO PRN (09:44)
[2018-07-09] MEDS: AMIODARONE 200 MG TABLET PO SCH ×2 (09:44→20:49)
[2018-07-09] MEDS: ASPIRIN 81 MG TABLET EC PO SCH (09:44)
[2018-07-09] MEDS: DIGOXIN 0.125 MG TABLET PO SCH (09:45)
[2018-07-09] MEDS: MUPIROCIN OINT 2%, 22GM NAS SCH ×2 (09:46→20:50)
[2018-07-09 13:26] VITALS: BP 131/88
[2018-07-09] MEDS: FUROSEMIDE 20 MG TABLET PO SCH (13:28)
[2018-07-09] MEDS: HYDROcodone/APAP 10/325 MG TABLET PO PRN (13:47)
[2018-07-09] MEDS ORDERED: WARFARIN 5 MG TABLET PO-COUM ONE (18:00)
[2018-07-09 20:39] VITALS: BP 127/88
[2018-07-09] MEDS: ZOLPIDEM 5MG TABLET PO PRN (20:49)
[2018-07-09] MEDS: DOXAZOSIN 1MG TABLET PO SCH (20:49)
[2018-07-10 02:50] VITALS: BP 122/82
[2018-07-10 05:46] LABS: INTERNATIONAL NORMALIZED RATIO 2.4 (0.93-1.1); PROTHROMBIN TIME 24.4 Seconds (9.6-11.5)
[2018-07-10 05:51] LABS: ANION GAP 5 mmol/L (5-15); CALCIUM 7.6 mg/dL (8.5-10.1); CHLORIDE 103 mmol/L (98-107); CREATININE 1.13 mg/dL (0.7-1.3)
[2018-07-10 07:45] VITALS: BP 119/79
[2018-07-10] MEDS: DOCUSATE 100 MG CAPSULE PO SCH ×2 (09:00→20:50)
[2018-07-10] MEDS: WARFARIN BIOPROSTHETIC VALVE PROTOCOL 2-3 XX SCH (09:00)
[2018-07-10] MEDS: SODIUM CHLORIDE FLUSH 10ML SYR IVF SCH ×2 (09:45→20:49)
[2018-07-10] MEDS: ASPIRIN 81 MG TABLET EC PO SCH (09:45)
[2018-07-10] MEDS: DIGOXIN 0.125 MG TABLET PO SCH (09:45)
[2018-07-10] MEDS: AMIODARONE 200 MG TABLET PO SCH (09:45)
[2018-07-10] MEDS: FUROSEMIDE 20 MG TABLET PO SCH (09:46)
[2018-07-10] MEDS: HYDROcodone/APAP 10/325 MG TABLET PO PRN ×2 (10:09→19:08)
[2018-07-10] MEDS: METOPROLOL SUCCINATE 25 MG TAB.ER.24H PO SCH ×2 (12:06→20:53)
[2018-07-10 12:44] VITALS: BP 100/69
[2018-07-10] MEDS ORDERED: FUROSEMIDE 20 MG/2 ML IV ONE (17:00)
[2018-07-10] MEDS ORDERED: WARFARIN 7.5 MG TABLET PO-COUM ONE (18:00)
[2018-07-10 18:48] VITALS: BP 99/62
[2018-07-10] MEDS: DOXAZOSIN 1MG TABLET PO SCH (20:49)
[2018-07-10] MEDS: ZOLPIDEM 5MG TABLET PO PRN (20:53)
[2018-07-10] MEDS ORDERED: AMIODARONE 200 MG TABLET PO SCH (21:00)
[2018-07-11 00:57] VITALS: BP 123/86
[2018-07-11] MEDS: ONDANSETRON 2MG/ML, 2ML IVPush PRN (04:57)
[2018-07-11 06:02] LABS: ANION GAP 5 mmol/L (5-15); CALCIUM 7.7 mg/dL (8.5-10.1); CHLORIDE 102 mmol/L (98-107)
[2018-07-11 06:03] LABS: CREATININE 1.16 mg/dL (0.7-1.3)
[2018-07-11 06:07] LABS: INTERNATIONAL NORMALIZED RATIO 4.18 (0.93-1.1); PROTHROMBIN TIME 41.5 Seconds (9.6-11.5)
[2018-07-11 06:54] VITALS: BP 104/70
[2018-07-11] MEDS ORDERED: HOLD COUMADIN MC PRN (08:00)
[2018-07-11] MEDS ORDERED: FURO20TA3 PO (09:31)
[2018-07-11] MEDS ORDERED: WARF5TAB PO (09:31)
[2018-07-11] MEDS ORDERED: HYDR-3307 PO (09:31)
[2018-07-11] MEDS ORDERED: ASPI81TA45 PO (09:31)
[2018-07-11] MEDS: AMIODARONE 200 MG TABLET PO SCH ×2 (09:59→20:11)
[2018-07-11] MEDS: ASPIRIN 81 MG TABLET EC PO SCH (09:59)
[2018-07-11] MEDS: DOCUSATE 100 MG CAPSULE PO SCH ×2 (10:00→20:11)
[2018-07-11] MEDS: FUROSEMIDE 20 MG TABLET PO SCH (10:00)
[2018-07-11] MEDS: DIGOXIN 0.125 MG TABLET PO SCH (10:01)
[2018-07-11] MEDS: METOPROLOL SUCCINATE 50 MG TAB.ER.24H PO SCH (10:02)
[2018-07-11] MEDS: SODIUM CHLORIDE FLUSH 10ML SYR IVF SCH ×2 (10:07→20:10)
[2018-07-11 15:33] VITALS: BP 98/70
[2018-07-11] MEDS: HYDROcodone/APAP 10/325 MG TABLET PO PRN (16:31)
[2018-07-11 18:41] VITALS: BP 109/65
[2018-07-11] MEDS: DOXAZOSIN 1MG TABLET PO SCH (20:10)
[2018-07-12 00:59] VITALS: BP 105/73
[2018-07-12 05:31] LABS: INTERNATIONAL NORMALIZED RATIO 4.12 (0.93-1.1)
[2018-07-12 05:37] LABS: ANION GAP 5 mmol/L (5-15); CALCIUM 7.6 mg/dL (8.5-10.1); CHLORIDE 100 mmol/L (98-107)
[2018-07-12 05:38] LABS: CREATININE 1.24 mg/dL (0.7-1.3)
[2018-07-12 06:42] VITALS: BP 111/76
[2018-07-12] MEDS ORDERED: HOLD COUMADIN MC PRN (08:00)
[2018-07-12] MEDS: DIGOXIN 0.125 MG TABLET PO SCH (10:22)
[2018-07-12] MEDS: FUROSEMIDE 20 MG TABLET PO SCH (10:22)
[2018-07-12] MEDS: METOPROLOL SUCCINATE 50 MG TAB.ER.24H PO SCH (10:22)
[2018-07-12] MEDS: ASPIRIN 81 MG TABLET EC PO SCH (10:23)
[2018-07-12] MEDS: DOCUSATE 100 MG CAPSULE PO SCH (10:23)
[2018-07-12] MEDS: AMIODARONE 200 MG TABLET PO SCH (10:23)
[2018-07-12] MEDS: SODIUM CHLORIDE FLUSH 10ML SYR IVF SCH (10:24)
[2018-07-12 13:17] VITALS: BP 101/67
[2018-07-15] MEDS ORDERED: RIVAROXABAN 20 MG TABLET PO SCH (09:00)
== END 2018-07-12 16:00 | disposition home health service (06) | DRG 219 ==
LOC: 5SO 07-04 04:38 → CCU 07-04 06:55 → 5SO 07-07 16:26 → DCLOUNGE 07-12 16:00
PROVIDERS: ADMIT Thoracic Surgery (Cardiothoracic Vascular Surgery); ATTEND Thoracic Surgery (Cardiothoracic Vascular Surgery)
PROC: 02580ZZ Destruction of Conduction Mechanism, Open Approach (ICD-10-PCS; 2018-07-04)
PROC: 5A1221Z Performance of Cardiac Output, Continuous (ICD-10-PCS; 2018-07-04)
PROC: B245ZZ4 Ultrasonography of Left Heart, Transesophageal (ICD-10-PCS; 2018-07-04)
PROC: 02B70ZK Excision of Left Atrial Appendage, Open Approach (ICD-10-PCS; 2018-07-04)
PROC: 30233N1 Transfusion of Nonautologous Red Blood Cells into Peripheral Vein, Percutaneous Approach (ICD-10-PCS; 2018-07-04)
PROC: 30233R1 Transfusion of Nonautologous Platelets into Peripheral Vein, Percutaneous Approach (ICD-10-PCS; 2018-07-04)
PROC: 30233M1 Transfusion of Nonautologous Plasma Cryoprecipitate into Peripheral Vein, Percutaneous Approach (ICD-10-PCS; 2018-07-04)
PROC: 02UG0JZ Supplement Mitral Valve with Synthetic Substitute, Open Approach (ICD-10-PCS; principal; 2018-07-04 07:30)
DX: I34.0 Nonrheumatic mitral (valve) insufficiency (principal); N17.0 Acute kidney failure with tubular necrosis; J96.01 Acute respiratory failure with hypoxia; E46 Unspecified protein-calorie malnutrition; J90 Pleural effusion, not elsewhere classified; D62 Acute posthemorrhagic anemia; E87.1 Hypo-osmolality and hyponatremia; E87.2 Acidosis; I44.0 Atrioventricular block, first degree; I34.1 Nonrheumatic mitral (valve) prolapse; E87.5 Hyperkalemia; I48.0 Paroxysmal atrial fibrillation; M10.9 Gout, unspecified; N18.9 Chronic kidney disease, unspecified; Z60.2 Problems related to living alone; Z79.01 Long term (current) use of anticoagulants; Z86.73 Personal history of transient ischemic attack (TIA), and cerebral infarction without residual deficits; Z68.25 Body mass index [BMI] 25.0-25.9, adult; Z95.2 Presence of prosthetic heart valve; Y83.1 Surgical operation with implant of artificial internal device as the cause of abnormal reaction of the patient, or of later complication, without mention of misadventure at the time of the procedure; Y92.89 Other specified places as the place of occurrence of the external cause
CPT/HCPCS: 36415; 36600; 71045; 71046; 76770; 80048; 80053; 80069; 81001; 81003; 82040; 82306; 82310; 82330; 82436; 82550; 82570; 82728; 82800; 82803; 82810; 82947; 82962; 83036; 83540; 83550; 83735; 83880; 83970; 84100; 84132; 84133; 84156; 84295; 84300; 84550; 85014; 85018; 85025; 85045; 85049; 85347; 85610; 85730; 86850; 86900; 86923; 87081; 87086; 87205; 88305; 93005; 93312; 93321; 93325; 93880; 94002; 94150; G0378; J0171; J0697; J1644; J1815; J1940; J2250; J2405; J2704; J2720; J3010; J3370; J3475; J3480; J7189; P9045; P9047; C1751; C1760; C2618; J0282; J0780; J2270; J2370; J2930; J7030; J7050; J7060; J7120; P9012; P9016; P9035

== ENCOUNTER 2018-07-23 16:50 | Inpatient (IN) | payer OTHER ==
[~2018-07-23] VITALS: Ht 188 cm; Wt 87.3 kg
[~2018-07-23 16:50] MED LIST changes: +ASPI81TA45 PO; +FURO20TA3 PO; +HYDR-3307 PO; +WARF5TAB PO
--- NOTE | 2018-07-23 17:45 | NUR ---
PT WENT TO [facility] FOR FOLLOW UP APPOINTMENT S/P MITRAL VALVE REPAIR. PT BECAME NAUSEATED WITH DRIVE HEAVES AND TACHYCARIA WHILE AT MD. PT HAS SOB WITH EXERTION AND SWELLING BILATERAL LEGS THAT HAS INCREASED SINCE DC FROM HOSPITAL. DAUGHTER AT BEDSIDE.
[2018-07-23] MEDS ORDERED: SODIUM CHLORIDE FLUSH 10ML SYR IVF ONE (18:00)
[2018-07-23 18:09] LABS: BASOPHILS # (AUTO) 0.02 x10^3/uL (0-0.1); BASOPHILS % (AUTO) 0 % (0-1); EOSINOPHILS # (AUTO) 0.01 x10^3/uL (0-0.4); EOSINOPHILS % (AUTO) 0 % (1-7); LYMPHOCYTES # (AUTO) 0.44 x10^3/uL (1-3.4); LYMPHOCYTES % (AUTO) 8 % (22-44); MD NO; MEAN CORPUSCULAR HEMOGLOBIN 31.6 pg (27.5-34.5); MEAN CORPUSCULAR HGB CONC 33.6 g/dL (33.2-36.2); MEAN CORPUSCULAR VOLUME 94.1 fL (81-97); MEAN PLATELET VOLUME 8.8 fL (7.4-10.4); MONOCYTES # (AUTO) 0.28 x10^3/uL (0.2-0.8); MONOCYTES % (AUTO) 5 % (2-9); NEUTROPHILS # (AUTO) 4.86 x10^3/uL (1.8-6.8); NEUTROPHILS % (AUTO) 87 % (42-75); PLATELET COUNT 180 x10^3/uL (130-400); RED BLOOD COUNT 3.56 x10^6/uL (4.38-5.82); RED CELL DISTRIBUTION WIDTH 16.4 % (9.4-14.8)
[2018-07-23 18:14] LABS: INTERNATIONAL NORMALIZED RATIO 2.05 (0.93-1.1); PROTHROMBIN TIME 20.9 Seconds (9.6-11.5)
[2018-07-23 18:18] LABS: ALBUMIN 3.2 g/dL (3.4-5.0); CALCIUM 8.1 mg/dL (8.5-10.1); CHLORIDE 104 mmol/L (98-107); CREATININE 1.74 mg/dL (0.7-1.3)
[2018-07-23 18:23] LABS: ANION GAP 8 mmol/L (5-15)
--- NOTE | 2018-07-23 19:03 | NUR ---
PT AWARE OF ADMISSION. CONTINUE TO MONITOR
--- NOTE | 2018-07-23 19:16 | NUR ---
HOSPITALIST AT BEDSIDE
--- NOTE | 2018-07-23 19:16 | NUR ---
CORRECTION TO NOTE: NEWS WRITER AT BEDSIDE.
[2018-07-23] MEDS ORDERED: SODIUM CHLORIDE FLUSH 10ML SYR IVF PRN (19:30)
--- NOTE | 2018-07-23 19:56 | NUR ---
REPORT VIRIDIANA JEROME. PT TO BE TRANSPORTED TO FLOOR [facility] [place] MONITOR, OXYGEN, TECH
[2018-07-23] MEDS ORDERED: POLYETHYLENE GLYCOL 17 GM PACKET PO PRN (20:00)
[2018-07-23] MEDS ORDERED: HYDROcodone/APAP 10/325 MG TABLET PO PRN (20:00)
[2018-07-23] MEDS ORDERED: LABETALOL 5MG/ML, 20ML IVPush PRN (20:00)
[2018-07-23 20:19] VITALS: BP 117/80
[2018-07-23 20:27] LABS: TROPONIN I 0.064 ng/mL (0.000-0.045)
[2018-07-23 20:50] VITALS: BP 117/80
[2018-07-23] MEDS: AMIODARONE 200 MG TABLET PO SCH (21:34)
[2018-07-23] MEDS: METOPROLOL SUCCINATE 50 MG TAB.ER.24H PO SCH (21:34)
[2018-07-23] MEDS ORDERED: WARFARIN 2.5 MG TABLET PO-COUM ONE (22:30)
[2018-07-23] MEDS ORDERED: LABETALOL 5 MG/ML SYRINGE IVPush PRN (23:00)
[2018-07-24 01:37] VITALS: BP 100/67
[2018-07-24 01:54] LABS: BASOPHILS # (AUTO) 0.03 x10^3/uL (0-0.1); BASOPHILS % (AUTO) 1 % (0-1); EOSINOPHILS # (AUTO) 0.02 x10^3/uL (0-0.4); EOSINOPHILS % (AUTO) 0 % (1-7); LYMPHOCYTES # (AUTO) 0.54 x10^3/uL (1-3.4); LYMPHOCYTES % (AUTO) 12 % (22-44); MD NO; MEAN CORPUSCULAR HEMOGLOBIN 31.6 pg (27.5-34.5); MEAN CORPUSCULAR HGB CONC 33.7 g/dL (33.2-36.2); MEAN PLATELET VOLUME 8.9 fL (7.4-10.4); MONOCYTES # (AUTO) 0.35 x10^3/uL (0.2-0.8); MONOCYTES % (AUTO) 8 % (2-9); NEUTROPHILS # (AUTO) 3.67 x10^3/uL (1.8-6.8); NEUTROPHILS % (AUTO) 80 % (42-75); PLATELET COUNT 160 x10^3/uL (130-400); RED BLOOD COUNT 3.23 x10^6/uL (4.38-5.82); RED CELL DISTRIBUTION WIDTH 16.3 % (9.4-14.8)
[2018-07-24 01:59] LABS: INTERNATIONAL NORMALIZED RATIO 2.03 (0.93-1.1); PROTHROMBIN TIME 20.7 Seconds (9.6-11.5)
[2018-07-24 02:02] LABS: ALANINE AMINOTRANSFERASE 20 U/L (12-78); ALBUMIN 2.7 g/dL (3.4-5.0); ANION GAP 5 mmol/L (5-15); CALCIUM 7.8 mg/dL (8.5-10.1); CHLORIDE 107 mmol/L (98-107); CREATININE 1.71 mg/dL (0.7-1.3)
[2018-07-24 02:05] LABS: TROPONIN I 0.074 ng/mL (0.000-0.045)
[2018-07-24 02:16] LABS: ALKALINE PHOSPHATASE 45 U/L (45-117); BILIRUBIN,TOTAL 0.3 mg/dL (0.2-1.0)
[2018-07-24] MEDS ORDERED: FUROSEMIDE 20 MG/2 ML ONE (03:26)
[2018-07-24] MEDS: FUROSEMIDE 20 MG/2 ML IV SCH ×2 (03:29→17:30)
[2018-07-24 06:34] VITALS: BP 96/66
[2018-07-24] MEDS: ASPIRIN 81 MG TABLET EC PO SCH (09:02)
[2018-07-24] MEDS: METOPROLOL SUCCINATE 50 MG TAB.ER.24H PO SCH ×2 (09:03→20:26)
[2018-07-24] MEDS: AMIODARONE 200 MG TABLET PO SCH (09:03)
[2018-07-24 13:14] VITALS: BP 114/74
[2018-07-24] MEDS: DIGOXIN 0.125 MG TABLET PO SCH (17:30)
[2018-07-24] MEDS ORDERED: WARFARIN 2.5 MG TABLET PO-COUM ONE ×2 (18:00)
[2018-07-24 19:27] VITALS: BP 97/62
[2018-07-24 20:24] VITALS: BP 104/63
[2018-07-25 00:24] VITALS: BP 104/75
[2018-07-25] MEDS ORDERED: TEMAZEPAM 15 MG CAPSULE PO PRN (00:30)
[2018-07-25 05:31] LABS: INTERNATIONAL NORMALIZED RATIO 1.85 (0.93-1.1)
[2018-07-25 05:35] LABS: CHLORIDE 106 mmol/L (98-107)
[2018-07-25 06:08] LABS: % IRON SATURATION 10 % (20-55); ANION GAP 7 mmol/L (5-15); CREATININE 1.72 mg/dL (0.7-1.3); IRON LEVEL 21 mcg/dL (65-175); TOTAL IRON BINDING CAPACITY 216 mcg/dL (250-450); TROPONIN I 0.059 ng/mL (0.000-0.045)
[2018-07-25 06:53] VITALS: BP 107/72
[2018-07-25] MEDS: FUROSEMIDE 20 MG/2 ML IV SCH ×2 (08:42→17:23)
[2018-07-25] MEDS: DIGOXIN 0.125 MG TABLET PO SCH (08:43)
[2018-07-25] MEDS: ASPIRIN 81 MG TABLET EC PO SCH (08:43)
[2018-07-25] MEDS: AMIODARONE 200 MG TABLET PO SCH (08:43)
[2018-07-25] MEDS: METOPROLOL SUCCINATE 50 MG TAB.ER.24H PO SCH ×2 (08:46→20:47)
[2018-07-25] MEDS ORDERED: SODIUM CHLORIDE 0.9% 1,000 ML IV ONE (10:00)
[2018-07-25] MEDS: IRON SUCROSE COMPLEX 100MG/5ML IV SCH (12:07)
[2018-07-25 12:34] VITALS: BP 109/73
[2018-07-25] MEDS ORDERED: WARFARIN 2.5 MG TABLET PO-COUM ONE (18:00)
[2018-07-25 20:11] VITALS: BP 109/71
[2018-07-25 20:45] VITALS: BP 102/63
[2018-07-26 01:15] VITALS: BP 114/80
[2018-07-26 05:24] LABS: INTERNATIONAL NORMALIZED RATIO 1.79 (0.93-1.1); PROTHROMBIN TIME 18.4 Seconds (9.6-11.5)
[2018-07-26 07:40] VITALS: BP 108/67
[2018-07-26] MEDS: FUROSEMIDE 20 MG/2 ML IV SCH (08:56)
[2018-07-26] MEDS: IRON SUCROSE COMPLEX 100MG/5ML IV SCH (08:56)
[2018-07-26] MEDS: DIGOXIN 0.125 MG TABLET PO SCH (08:57)
[2018-07-26] MEDS: ASPIRIN 81 MG TABLET EC PO SCH (08:57)
[2018-07-26] MEDS: METOPROLOL SUCCINATE 50 MG TAB.ER.24H PO SCH (08:57)
[2018-07-26] MEDS: AMIODARONE 200 MG TABLET PO SCH (08:57)
[2018-07-26] MEDS ORDERED: TEMAZEPAM 15 MG CAPSULE PO PRN (09:30)
[2018-07-26] MEDS ORDERED: PHENYLEPHRINE 10 MG/ML ONE (11:18)
[2018-07-26] MEDS ORDERED: PROPOFOL 10 MG/ML, 20ML ONE (11:18)
[2018-07-26 14:40] VITALS: BP 121/78
[2018-07-26] MEDS ORDERED: FURO40TA6 PO (15:17)
[2018-07-26] MEDS ORDERED: AMIO200T42 PO (15:17)
[2018-07-26] MEDS ORDERED: FERR324T18 PO (15:19)
== END 2018-07-26 17:14 | disposition home health service (06) | DRG 280 ==
LOC: ED 18:05 → EDIP 19:07 → 5SO 20:10 → DCLOUNGE 07-26 16:50
PROVIDERS: ADMIT Family Medicine; ATTEND Family Medicine
PROC: 5A2204Z Restoration of Cardiac Rhythm, Single (ICD-10-PCS; principal; 2018-07-26 11:00)
DX: I21.4 Non-ST elevation (NSTEMI) myocardial infarction (principal); I50.33 Acute on chronic diastolic (congestive) heart failure; I48.92 Unspecified atrial flutter; D68.69 Other thrombophilia; I31.3 Pericardial effusion (noninflammatory); I13.0 Hypertensive heart and chronic kidney disease with heart failure and stage 1 through stage 4 chronic kidney disease, or unspecified chronic kidney disease; Z66 Do not resuscitate; D50.9 Iron deficiency anemia, unspecified; I08.1 Rheumatic disorders of both mitral and tricuspid valves; N18.9 Chronic kidney disease, unspecified; I11.0 Hypertensive heart disease with heart failure; I48.0 Paroxysmal atrial fibrillation; Z79.82 Long term (current) use of aspirin; Z86.73 Personal history of transient ischemic attack (TIA), and cerebral infarction without residual deficits; Z87.891 Personal history of nicotine dependence; Z95.2 Presence of prosthetic heart valve
CPT/HCPCS: 36415; 71045; 80048; 80053; 80162; 82040; 83540; 83550; 83735; 83880; 84484; 85025; 85610; 92960; 93005; 93306; 93312; 93325; 99285; G0378; J1756; J2704; J1940; J2370; J7030

== ENCOUNTER 2018-08-02 16:58 | Inpatient (IN) | payer OTHER ==
[~2018-08-02] VITALS: Ht 188 cm; Wt 79.1 kg
[~2018-08-02 16:58] MED LIST changes: +FERR324T18 PO
--- NOTE | 2018-08-02 17:38 | NUR ---
pt presents to ED with c/o progressive sob, worse with exertion and bilateral LE edema starting 07/28/18. pt was admitted 07/23 for fluid overload, had a mitral valve repair 07/04/18. pt also had BRIAN and cardioversion during 07/23 admission. pt denies pain, states he has mild chest presure since mitral valve repair surgery. EKG taken in triage. pt is a&o, resps even, mildly labored. pt able to speak in full sentences without difficulty. all monitors applied to pt. call light in reach. family at bedside.
[2018-08-02 17:56] LABS: BASOPHILS # (AUTO) 0.01 x10^3/uL (0-0.1); BASOPHILS % (AUTO) 0 % (0-1); EOSINOPHILS # (AUTO) 0.05 x10^3/uL (0-0.4); EOSINOPHILS % (AUTO) 1 % (1-7); LYMPHOCYTES # (AUTO) 0.59 x10^3/uL (1-3.4); LYMPHOCYTES % (AUTO) 12 % (22-44); MD NO; MEAN CORPUSCULAR HEMOGLOBIN 31.2 pg (27.5-34.5); MEAN CORPUSCULAR HGB CONC 32.7 g/dL (33.2-36.2); MEAN CORPUSCULAR VOLUME 95.3 fL (81-97); MEAN PLATELET VOLUME 8.7 fL (7.4-10.4); MONOCYTES # (AUTO) 0.42 x10^3/uL (0.2-0.8); MONOCYTES % (AUTO) 8 % (2-9); NEUTROPHILS # (AUTO) 4.07 x10^3/uL (1.8-6.8); NEUTROPHILS % (AUTO) 79 % (42-75); PLATELET COUNT 169 x10^3/uL (130-400); RED BLOOD COUNT 3.71 x10^6/uL (4.38-5.82); RED CELL DISTRIBUTION WIDTH 16.1 % (9.4-14.8)
[2018-08-02] MEDS ORDERED: FUROSEMIDE 40 MG/4 ML IVPush ONE (18:00)
[2018-08-02 18:07] LABS: ALANINE AMINOTRANSFERASE 21 U/L (12-78); ALBUMIN 3.2 g/dL (3.4-5.0); ANION GAP 5 mmol/L (5-15); CHLORIDE 107 mmol/L (98-107)
[2018-08-02 18:12] LABS: ALKALINE PHOSPHATASE 53 U/L (45-117); BILIRUBIN,TOTAL 0.6 mg/dL (0.2-1.0); CREATININE 1.49 mg/dL (0.7-1.3); TOTAL PROTEIN 5.9 g/dL (6.4-8.2); TROPONIN I 0.031 ng/mL (0.000-0.045)
--- NOTE | 2018-08-02 18:18 | NUR ---
JENNIFER OK'D RN TO ORDER PT CARDIAC MEAL TRAY.
[2018-08-02] MEDS ORDERED: FUROSEMIDE 40 MG/4 ML ONE (18:21)
[2018-08-02] MEDS ORDERED: DOXA4TAB3 PO (18:37)
--- NOTE | 2018-08-02 18:48 | NUR ---
PT MEDICATED PER EMAR, TOLERATED WELL. PT A&O, RESPS EVEN AND MILDLY LABORED. NSR ON [employer] WITH NO ECTOPY. PT HAS NO COMPLAINT AT THIS TIME.
--- NOTE | 2018-08-02 18:56 | NUR ---
pt resting on [facility]id [facility]atts, monitors in place, call light within reach
[2018-08-02] MEDS ORDERED: HYDROcodone/APAP 5/325 TABLET PO PRN (19:00)
--- NOTE | 2018-08-02 19:00 | NUR ---
REPORT TO JUSTUS OBRIEN AT BEDSIDE.
--- NOTE | 2018-08-02 19:11 | NUR ---
TRIAGE EKG REVIEWED BY JENNIFER DANIELS, REPEAT EKG REQUESTED BY
[2018-08-02 19:53] VITALS: BP 142/90
[2018-08-02] MEDS: DOXAZOSIN 2MG TABLET PO SCH (20:10)
[2018-08-02] MEDS: METOPROLOL SUCCINATE 50 MG TAB.ER.24H PO SCH (20:11)
[2018-08-02] MEDS ORDERED: ENOXAPARIN 40 MG/0.4 ML SQ ONE (22:30)
[2018-08-02] MEDS ORDERED: LORazepam 0.5MG TABLET PO ONE (22:30)
[2018-08-03 02:11] VITALS: BP 126/69
[2018-08-03 05:13] LABS: BASOPHILS # (AUTO) 0.02 x10^3/uL (0-0.1); BASOPHILS % (AUTO) 1 % (0-1); EOSINOPHILS # (AUTO) 0.04 x10^3/uL (0-0.4); EOSINOPHILS % (AUTO) 1 % (1-7); LYMPHOCYTES # (AUTO) 0.72 x10^3/uL (1-3.4); LYMPHOCYTES % (AUTO) 15 % (22-44); MD NO; MEAN CORPUSCULAR HEMOGLOBIN 31.5 pg (27.5-34.5); MEAN CORPUSCULAR VOLUME 95.6 fL (81-97); MEAN PLATELET VOLUME 9.6 fL (7.4-10.4); MONOCYTES # (AUTO) 0.39 x10^3/uL (0.2-0.8); MONOCYTES % (AUTO) 8 % (2-9); NEUTROPHILS # (AUTO) 3.55 x10^3/uL (1.8-6.8); NEUTROPHILS % (AUTO) 75 % (42-75); PLATELET COUNT 149 x10^3/uL (130-400); RED BLOOD COUNT 3.33 x10^6/uL (4.38-5.82)
[2018-08-03 05:21] LABS: CHLORIDE 107 mmol/L (98-107)
[2018-08-03 05:31] LABS: ANION GAP 8 mmol/L (5-15); CREATININE 1.47 mg/dL (0.7-1.3); TROPONIN I 0.035 ng/mL (0.000-0.045)
[2018-08-03 08:04] VITALS: BP 128/78
[2018-08-03] MEDS ORDERED: DIGOXIN 0.125 MG TABLET PO SCH (09:00)
[2018-08-03] MEDS: ASPIRIN 81 MG TABLET EC PO SCH (10:40)
[2018-08-03] MEDS: AMIODARONE 200 MG TABLET PO SCH (10:40)
[2018-08-03] MEDS: FERROUS GLUCONATE 324 MG TABLET PO SCH (10:40)
[2018-08-03] MEDS: METOPROLOL SUCCINATE 50 MG TAB.ER.24H PO SCH ×2 (10:40→20:31)
[2018-08-03] MEDS: DOXAZOSIN 2MG TABLET PO SCH ×2 (10:41→20:31)
[2018-08-03] MEDS: FUROSEMIDE 40 MG TABLET PO SCH (10:41)
[2018-08-03] MEDS ORDERED: OMNIPAQUE 350 MG/ML, 100ML BOTTLE ONE (13:19)
[2018-08-03 14:00] VITALS: BP 133/84
[2018-08-03] MEDS: TEMAZEPAM 15 MG CAPSULE PO PRN (20:30)
[2018-08-03 20:45] VITALS: BP 129/80
[2018-08-04 01:39] VITALS: BP 138/80
[2018-08-04 04:55] LABS: BASOPHILS # (AUTO) 0.01 x10^3/uL (0-0.1); BASOPHILS % (AUTO) 0 % (0-1); EOSINOPHILS # (AUTO) 0.06 x10^3/uL (0-0.4); EOSINOPHILS % (AUTO) 1 % (1-7); LYMPHOCYTES # (AUTO) 0.69 x10^3/uL (1-3.4); LYMPHOCYTES % (AUTO) 15 % (22-44); MD NO; MEAN CORPUSCULAR HEMOGLOBIN 31.3 pg (27.5-34.5); MEAN CORPUSCULAR HGB CONC 32.9 g/dL (33.2-36.2); MEAN CORPUSCULAR VOLUME 94.9 fL (81-97); MEAN PLATELET VOLUME 8.7 fL (7.4-10.4); MONOCYTES # (AUTO) 0.41 x10^3/uL (0.2-0.8); MONOCYTES % (AUTO) 9 % (2-9); NEUTROPHILS # (AUTO) 3.37 x10^3/uL (1.8-6.8); NEUTROPHILS % (AUTO) 74 % (42-75); PLATELET COUNT 154 x10^3/uL (130-400); RED BLOOD COUNT 3.45 x10^6/uL (4.38-5.82); RED CELL DISTRIBUTION WIDTH 16.2 % (9.4-14.8)
[2018-08-04 05:02] LABS: INTERNATIONAL NORMALIZED RATIO 1.11 (0.93-1.1); PROTHROMBIN TIME 11.6 Seconds (9.6-11.5)
[2018-08-04 05:07] LABS: ANION GAP 5 mmol/L (5-15); CALCIUM 7.9 mg/dL (8.5-10.1); CHLORIDE 106 mmol/L (98-107)
[2018-08-04 05:09] LABS: CREATININE 1.48 mg/dL (0.7-1.3)
[2018-08-04 08:09] VITALS: BP 135/81
[2018-08-04] MEDS: AMIODARONE 200 MG TABLET PO SCH (08:50)
[2018-08-04] MEDS: FERROUS GLUCONATE 324 MG TABLET PO SCH (08:50)
[2018-08-04] MEDS: DOXAZOSIN 2MG TABLET PO SCH ×2 (08:50→21:03)
[2018-08-04] MEDS: METOPROLOL SUCCINATE 50 MG TAB.ER.24H PO SCH ×2 (08:51→21:02)
[2018-08-04] MEDS: FUROSEMIDE 40 MG TABLET PO SCH (08:51)
[2018-08-04] MEDS: ASPIRIN 81 MG TABLET EC PO SCH (08:51)
[2018-08-04] MEDS ORDERED: FUROSEMIDE 40 MG/4 ML IV ONE (11:30)
[2018-08-04 12:13] LABS: ALBUMIN 2.9 g/dL (3.4-5.0); TOTAL PROTEIN 5.3 g/dL (6.4-8.2)
[2018-08-04 14:22] VITALS: BP 120/73
[2018-08-04] MEDS ORDERED: LIDOCAINE 1%, 20ML ONE (15:18)
[2018-08-04] MEDS ORDERED: LIDOCAINE-MPF 1%, 5ML ONE ×2 (15:18→15:48)
[2018-08-04] MEDS: ENOXAPARIN 40 MG/0.4 ML SQ SCH (16:36)
[2018-08-04 20:01] VITALS: BP 114/71
[2018-08-04] MEDS: TEMAZEPAM 15 MG CAPSULE PO PRN (21:03)
[2018-08-05 01:20] VITALS: BP 131/78
[2018-08-05 05:49] LABS: ANION GAP 8 mmol/L (5-15); CHLORIDE 105 mmol/L (98-107); CREATININE 1.42 mg/dL (0.7-1.3)
[2018-08-05 08:19] VITALS: BP 120/80
[2018-08-05] MEDS: FUROSEMIDE 40 MG TABLET PO SCH (08:38)
[2018-08-05] MEDS: FERROUS GLUCONATE 324 MG TABLET PO SCH (08:38)
[2018-08-05] MEDS: DOXAZOSIN 2MG TABLET PO SCH ×2 (08:39→20:32)
[2018-08-05] MEDS: AMIODARONE 200 MG TABLET PO SCH (08:40)
[2018-08-05] MEDS: METOPROLOL SUCCINATE 50 MG TAB.ER.24H PO SCH ×2 (08:40→20:32)
[2018-08-05] MEDS: ASPIRIN 81 MG TABLET EC PO SCH (08:41)
[2018-08-05] MEDS ORDERED: LIDOCAINE-MPF 1%, 5ML ONE (11:30)
[2018-08-05] MEDS: ENOXAPARIN 40 MG/0.4 ML SQ SCH (12:01)
[2018-08-05] MEDS ORDERED: SENNA/DOCUSATE TABLET PO PRN (12:30)
[2018-08-05 13:45] VITALS: BP 106/65
[2018-08-05 15:50] VITALS: BP 114/69
[2018-08-05 18:54] VITALS: BP 112/71
[2018-08-06 02:30] VITALS: BP 121/70
[2018-08-06 05:22] LABS: BASOPHILS # (AUTO) 0.03 x10^3/uL (0-0.1); BASOPHILS % (AUTO) 1 % (0-1); EOSINOPHILS # (AUTO) 0.06 x10^3/uL (0-0.4); EOSINOPHILS % (AUTO) 1 % (1-7); LYMPHOCYTES # (AUTO) 0.71 x10^3/uL (1-3.4); LYMPHOCYTES % (AUTO) 13 % (22-44); MD NO; MEAN CORPUSCULAR HEMOGLOBIN 31.3 pg (27.5-34.5); MEAN CORPUSCULAR HGB CONC 33.1 g/dL (33.2-36.2); MEAN CORPUSCULAR VOLUME 94.5 fL (81-97); MEAN PLATELET VOLUME 8.5 fL (7.4-10.4); MONOCYTES # (AUTO) 0.34 x10^3/uL (0.2-0.8); MONOCYTES % (AUTO) 6 % (2-9); NEUTROPHILS # (AUTO) 4.23 x10^3/uL (1.8-6.8); NEUTROPHILS % (AUTO) 79 % (42-75); PLATELET COUNT 147 x10^3/uL (130-400); RED BLOOD COUNT 3.47 x10^6/uL (4.38-5.82); RED CELL DISTRIBUTION WIDTH 16.2 % (9.4-14.8)
[2018-08-06 05:31] LABS: ANION GAP 5 mmol/L (5-15); CHLORIDE 107 mmol/L (98-107); CREATININE 1.22 mg/dL (0.7-1.3)
[2018-08-06] MEDS: DOXAZOSIN 2MG TABLET PO SCH (07:39)
[2018-08-06] MEDS: ASPIRIN 81 MG TABLET EC PO SCH (07:39)
[2018-08-06] MEDS: METOPROLOL SUCCINATE 50 MG TAB.ER.24H PO SCH (07:39)
[2018-08-06] MEDS: AMIODARONE 200 MG TABLET PO SCH (07:39)
[2018-08-06] MEDS: FUROSEMIDE 40 MG TABLET PO SCH (07:39)
[2018-08-06] MEDS: FERROUS GLUCONATE 324 MG TABLET PO SCH (07:39)
[2018-08-06 07:55] VITALS: BP 123/76
[2018-08-06] MEDS ORDERED: FURO40TA6 PO (09:41)
[2018-08-06] MEDS: ENOXAPARIN 40 MG/0.4 ML SQ SCH (11:38)
== END 2018-08-06 12:20 | disposition home health service (06) | DRG 291 ==
LOC: ED 18:41 → EDIP 18:55 → 5SO 19:48 → DCLOUNGE 08-06 12:15
PROVIDERS: ADMIT Internal Medicine; ATTEND Internal Medicine
PROC: 0W9B3ZZ Drainage of Left Pleural Cavity, Percutaneous Approach (ICD-10-PCS; principal; 2018-08-04)
PROC: 0W993ZZ Drainage of Right Pleural Cavity, Percutaneous Approach (ICD-10-PCS; 2018-08-05)
DX: I50.43 Acute on chronic combined systolic (congestive) and diastolic (congestive) heart failure (principal); N17.0 Acute kidney failure with tubular necrosis; T46.0X5A Adverse effect of cardiac-stimulant glycosides and drugs of similar action, initial encounter; I48.0 Paroxysmal atrial fibrillation; Z66 Do not resuscitate; Z79.82 Long term (current) use of aspirin; Z79.899 Other long term (current) drug therapy; Z86.73 Personal history of transient ischemic attack (TIA), and cerebral infarction without residual deficits; Z95.2 Presence of prosthetic heart valve; Y92.89 Other specified places as the place of occurrence of the external cause; Z88.8 Allergy status to other drugs, medicaments and biological substances
CPT/HCPCS: 32555; 36415; 71045; 71275; 80048; 80053; 80162; 82040; 82945; 83615; 83735; 83880; 84100; 84155; 84157; 84484; 85025; 85610; 87070; 87075; 87205; 89051; 93005; 96374; G0378; J1650; J1940; Q9967

== ENCOUNTER → 2018-09-17 | Outpatient (CLI) | payer OTHER ==
[~2018-09-17] MED LIST changes: +DOXA4TAB3 PO
== END | disposition home or self-care (01) ==
LOC: RAD 14:39
PROVIDERS: ATTEND Registered Nurse
DX: J90 Pleural effusion, not elsewhere classified (principal); Z98.890 Other specified postprocedural states
CPT/HCPCS: 71046